=== PATIENT | female | born 1985 ===

== ENCOUNTER 2018-02-09 20:41 | Emergency (ER) | payer MEDICAID ==
--- NOTE | 2018-02-09 22:00 | EDPHY ---
H & P Time Seen by Provider: 02/09/18 21:30 HPI/ROS: CHIEF COMPLAINT: Bipolar HISTORY OF PRESENT ILLNESS: 33-year-old female presents voluntarily to the emergency department wanting to be "checked out". Patient has a history of bipolar. She is supposed to be taking her lithium. She denies suicidal or homicidal ideation. Denies auditory or visual hallucinations. She is homeless and typically stays in the intermediate in [place]. Currently the patient has no abdominal pain. No chest pain or difficulty breathing. No headache. No reported trauma. She denies substance abuse or alcohol. She denies auditory or visual hallucinations. REVIEW OF SYSTEMS: Constitutional: No fever, no chills. Eyes: No double or blurry vision. ENT: No sore throat. Respiratory: No cough, no shortness of breath. Cardiac: No chest pain. Gastrointestinal: No abdominal pain, vomiting or diarrhea. Genitourinary: No dysuria. Musculoskeletal: No neck or back pain. Skin: No rashes. Neurological: No headache. Past Medical/Surgical History: Bipolar, corneal transplant left eye, cervical cancer Social History: Homeless Smoking Status: Light smoker Physical Exam: General Appearance: Alert, no distress. Eyes: Abnormal pupil to the left eye which is chronic for her given her corneal transplant. Extraocular motions are all intact. ENT: Mouth: Mucous membranes moist. Respiratory: No wheezing, rhonchi, or rales, lungs are clear to auscultation. Cardiovascular: Regular rate and rhythm. Gastrointestinal: Abdomen is soft and nontender, no masses, no rebound or guarding, bowel sounds normal. Neurological: Alert and oriented x 3, cranial nerves II through XII grossly intact Skin: Warm and dry, no rashes. Musculoskeletal: Nontender to palpate along the cervical, thoracic or lumbar spine. Neck is supple. Extremities: Full range of motion and no peripheral edema. Psychiatric: Patient is oriented X 3, there is no agitation. Constitutional: Initial Vital Signs Temperature (C) 36.8 C 02/09/18 21:09 Heart Rate 71 02/09/18 21:09 Respiratory Rate 16 02/09/18 21:09 Blood Pressure 134/116 H 02/09/18 21:09 O2 Sat (%) 97 02/09/18 21:09 O2 Delivery Mode Room Air Allergies/Adverse Reactions: No Known Allergies Allergy (Unverified 02/09/18 21:09) Home Medications: Medication Instructions Recorded [place] Aspartate 02/09/18 Seroquel 02/09/18 Medical Decision Making ED Course/Re-evaluation: 33-year-old female presents to the emergency department wanting to be evaluated. The patient currently has no complaints. She was given referral to [facility]. She does not feel suicidal homicidal. She would like to get back on her medications. She is supposed to be taking lithium. She is alert and oriented. She is cooperative. She states that she can "call my mom to come pick me up". The patient was given cab voucher. Differential Diagnosis: Including but not limited to medication noncompliance, depression, anxiety, suicidal ideation, homicidal ideation, substance abuse Departure - Departure Disposition: Home, Routine, Self-Care Clinical Impression: Bipolar 1 disorder Condition: Good Instructions: Bipolar Disorder (ED) Additional Instructions: Continue medications as prescribed. Return to the emergency department if you develop any suicidal ideation, homicidal ideation, auditory or visual hallucinations or any other concerns. Referrals: [facility],. [Clinic] - As per Instructions
[2018-02-09 22:02] VITALS: BP 132/108
== END 2018-02-09 22:27 | disposition home or self-care (01) ==
DX: F31.9 Bipolar disorder, unspecified (principal); F17.200 Nicotine dependence, unspecified, uncomplicated; Z85.41 Personal history of malignant neoplasm of cervix uteri